=== PATIENT | female | born 1960 | race Caucasian/White ===

== ENCOUNTER 2017-10-07 15:32 | Emergency (ER) | payer SELFPAY ==
[~2017-10-07] VITALS: Ht 177.8 cm; Wt 83.4 kg
[2017-10-07] MEDS ORDERED: PERCOCET 5/31 TABLET PO (18:22)
[2017-10-07] MEDS ORDERED: MOTRIN600 MG PO (18:22)
[2017-10-07 18:30] VITALS: BP 141/90
== END 2017-10-07 18:36 | disposition home or self-care (01) ==
LOC: EME 15:32
DX: S83.242A Other tear of medial meniscus, current injury, left knee, initial encounter (principal); X50.9XXA Other and unspecified overexertion or strenuous movements or postures, initial encounter; W19.XXXA Unspecified fall, initial encounter; F17.200 Nicotine dependence, unspecified, uncomplicated
CPT/HCPCS: 99281; 99284; J1885